=== PATIENT | female | born 1955 | race Caucasian/White ===

== ENCOUNTER 2017-04-03 21:25 | Observation (INO) | payer SELFPAY ==
[2017-04-03 22:02] LABS: Hematocrit 45 % (35-47); Hemoglobin 14.8 g/dl (12.0-16.0); Mean Corpuscular HGB Conc 33 g/dl (31-36); Mean Corpuscular Hemoglobin 31 pg (27-31); Mean Corpuscular Volume 94 fL (80-97); Mean Platelet Volume 11 um3 (7.4-10.4); Red Blood Count 4.81 10^6/ul (4.0-5.4); Red Cell Distribution Width 15 % (10.5-15); White Blood Count 7.2 10^3/ul (3.5-10.8)
--- NOTE | 2017-04-03 22:08 | RAD ---
INDICATION: Chest pain. COMPARISON: Comparison is made with a prior chest x-ray study from February 12, 2015. TECHNIQUE: A portable view of the chest was obtained. FINDINGS: Cardiac and mediastinal contours appear to be within normal limits. The lungs are clear. No pleural effusion is seen. IMPRESSION: NO EVIDENCE FOR ACUTE DISEASE.
[2017-04-03 22:17] LABS: BUN/Creatinine Ratio 17.3 (8-20); EGFR African American 100.7 (>60); EGFR Non-African American 78.3 (>60); Globulin 2.4 g/dL (2-4); Potassium 3.7 mmol/L (3.5-5.0); Total Bilirubin 0.4 mg/dL (0.2-1.0); Total Protein 6.4 g/dL (6.4-8.9)
[2017-04-04 02:14] LABS: HDL Cholesterol 45.4 mg/dL
--- NOTE | 2017-04-04 02:28 | HP ---
CC: Dr. Brooks* HISTORY AND PHYSICAL: DATE OF ADMISSION: CHIEF COMPLAINT: Chest pain. HISTORY OF PRESENT ILLNESS: The patient is a 61-year-old woman, who presents to the [facility] with a chief complaint of chest pain that started after dinner. She was lying down and she started feeling in the center of her chest all the way up to her neck. It did not radiate anywhere else. It was pressure like and 5/10 in severity. She had no nausea or vomiting, no shortness of breath, no palpitations, no sweating. She called the EMS, who gave her nitroglycerin and she said it slowly helped decrease the pain and now it is essentially gone. This has never happened before. PAST MEDICAL HISTORY: Significant for arthritis, a patent foramen ovale that was subsequently closed with surgery, bradycardia, constipation, hypothyroidism , and hypertriglyceridemia. MEDICATIONS: The only medication she is currently taking is Synthroid 50 mcg daily. ALLERGIES: She has no known drug allergies. FAMILY HISTORY: Reviewed and noncontributory. SOCIAL HISTORY: Quit tobacco in . No alcohol, occasional marijuana. She is a retired nurse. She is . Her daughter, Lilian Wallace, is her healthcare proxy. She has 3 children. REVIEW OF SYSTEMS: A 14-point review of systems was completed with the patient. All pertinent positives and negatives are in the history of present illness; otherwise, it is negative. PHYSICAL EXAMINATION GENERAL: A very pleasant woman, sitting up in bed, in no acute distress. VITAL SIGNS: Blood pressure /55, pulse ox 100%, respiratory 13 breaths per minute, heart rate beats per minute, temperature 98 degrees. HEENT: Normocephalic, atraumatic. Pupils equal, round, and reactive to light. Moist mucous membranes. NECK: Supple. No JVD, bruits, palpable thyroid, or lymphadenopathy. CHEST: Clear to auscultation and percussion bilaterally. CARDIOVASCULAR: S1, S2 appreciated. ABDOMEN: Positive bowel sounds in all 4 quadrants. Soft, nontender, nondistended. No hepatosplenomegaly. EXTREMITIES: No cyanosis, clubbing, or edema. +2 peripheral pulses bilaterally. NEURO: Alert and oriented x3. Moves all extremities. SKIN: No rashes or abnormalities. DIAGNOSTIC STUDIES/LAB DATA: Sodium 137, potassium 3.7, chloride 106, CO2 25, BUN 13, creatinine is 0.75, glucose is 91. Troponin is 0.00. White count 7.2, hemoglobin 14.8, hematocrit 45, platelets 174. Chest x-ray was interpreted by Radiology as no evidence for acute disease. EKG shows normal sinus rhythm at 61 beats per minute, normal axis, no acute ST- T wave changes. ASSESSMENT AND PLAN: 1. Chest pain. Part of her story is reasonable with the pressure-like pain that was relieved by nitro but the other part including the fact there were no associated symptoms make it seem less likely to be cardiac disease. However, we will rule her out with serial troponins. We will obtain nuclear stress test in the morning. We will check a lipid profile as she supposedly has high triglycerides that are currently untreated. 2. Hypothyroidism, stable. Continue Synthroid. 3. FEN. NPO after midnight. 4. DVT prophylaxis. Heparin subcu. 5. The patient is a full code. TIME SPENT: Over 75 minutes was spent on this H and P; more than 40 minutes of which was spent in direct [id number] contact with the patient in evaluation, physical exam, counseling, and coordination of care. [id number]/[facility] #: [id number] MTDD
[2017-04-04] MEDS ORDERED: Levothyroxine TAB* 50 MCG TAB PO SCH (06:00)
[2017-04-04] MEDS ORDERED: Heparin VIAL(*) 5000 UNITS/ML VIAL (FIVE THOUSAND) SUBCUT SCH (06:00)
--- NOTE | 2017-04-04 10:29 | RAD ---
Edited for charges. INDICATION: Chest pain COMPARISON: None TECHNIQUE: SPECT imaging was performed. Rest images were acquired following the intravenous injection of 10 millicuries of technetium 99m tetrofosmin at 0625 hours. At 0842 hours stress images were acquired following the intravenous administration of 25 millicuries of technetium 99m tetrofosmin. AP heart rate of 150 bpm was obtained which is 95% of the predicted value of 158 bpm. FINDINGS: There are no defects of the stress-induced or fixed nature. The cardiac chamber size is normal. There are no wall motion abnormalities. The ejection fraction is calculated at 73% percent during stress. IMPRESSION: No scintigraphic evidence of ischemia or infarction. ASSESSMENT: Low risk MTDD
[2017-04-04] MEDS ORDERED: Regadenoson* 0.4 MG/5 ML SYRINGE ONE (12:54)
[2017-04-04 13:26] VITALS: BP 117/66
--- NOTE | 2017-04-04 18:19 | DS ---
CC: Dr. Brooks.* DISCHARGE SUMMARY: DATE OF ADMISSION: 04/04/17 DATE OF DISCHARGE: 04/04/17 PRIMARY CARE PROVIDER: Dr. Brooks. DISCHARGE DIAGNOSIS: Chest pain that resolved, with low probability cardiac stress test documented on 04/04/17. SECONDARY DIAGNOSIS: 1. History of arthritis. 2. History of patent foramen ovale closure. 3. Bradycardia. 4. Constipation. 5. Hypothyroidism. 6. Hypertriglyceridemia. MEDICATION ON DISCHARGE: Synthroid 50 mcg daily. LABORATORY DATA AND STUDIES PERFORMED DURING HOSPITAL STAY: Included troponins that were zero throughout her hospital stay. Patient's triglycerides were 136, cholesterol of 176, LDL of 101 and HDL of 45. Patient's nuclear medicine cardiac stress test documented on 04/04/17, was low risk. There were no defects of stress induced or fixed nature. The ejection fraction was noted at 73% during stress. Patient is going to be discharged home, with recommendation to followup with her primary care doctor, Dr. Brooks, in 4 to 7 days. PHYSICAL EXAM AT DISCHARGE: Blood pressure of 101/54, heart rate of 58 and regular, respiratory rate 20, oxygen saturation 97% on room air, temperature of 99.0. General: Patient is a very pleasant 61-year-old female, who is in no acute distress. Alert, awake, oriented x3. HEENT: Head atraumatic, normocephalic. Pupils are equal, reactive to light and accommodation. Oropharynx is clear. Mucosa moist. Neck: Supple. No JVD. No bruits bilaterally. Cardiovascular: Regular rate and rhythm. No murmur. Respiratory: Clear to auscultation bilaterally. Abdomen: Soft and nontender. Bowel sounds present in all 4 quadrants. Please note that this is a short summary of the patient's hospital stay. Please refer to further medical records for details. [id number]/[facility] #: [id number] MTDD
--- NOTE | 2017-04-05 23:23 | ED ---
John Tellez Rebecca, scribed for Golden Bradford MD on 04/03/17 at 2300 . HPI Chest Pain - HPI Summary HPI Summary: Pt is a 61 y/o female BIBA to the ED c/o of sudden onset CP. CP began after dinner while laying in bed, at roughly 21:00. Pain is midsternal with radiation up to the jaw. Pain is currently described as mild, and went from a 5/10 to 3/ 10 after she received NTG administered by EMS. Pain is now 1/10 and characterized as dull. Pt also c/o of tingling bilaterally in the LE, described as her legs "feeling fake". Denies SOB, back pain, edema. PMHx of HLD and depression. FHx CAD. Pt was a heavy drinker until she quit 6 months ago former smoker. Last stress test a few years ago. - History of Current Complaint Chief Complaint: EDChestPainROMI Time Seen by Provider: 04/03/17 21:41 Hx Obtained From: Patient Onset/Duration: Started Hours Ago, Still Present Time of Onset: 21:00 Timing: Constant Initial Severity: Moderate Current Severity: Mild Pain Intensity: 1 Pain Scale Used: 0-10 Numeric Chest Pain Location: Mid Sternal Chest Pain Radiates: Yes Chest Pain Radiates To:: Jaw Character: Dull/Aching Aggravating Factor(s): Nothing Alleviating Factor(s): NTG 123 - administered by EMS [employer] Associated Signs and Symptoms: Positive: Tingling - bilateral LE. Negative: Shortness of Breath, Back Pain, Edema - Additional Pertinent History Primary Care Physician: [id number] - Allergy/Home Medications Allergies/Adverse Reactions: Allergies Allergy/AdvReac Type Severity Reaction Status Date / Time No Known Allergies Allergy Verified 04/03/17 22:08 PMH/Surg Hx/FS Hx/Imm Hx Endocrine/Hematology History: Reports: Hx Thyroid Disease Cardiovascular History: Reports: Hx Congenital Heart Disease, Other Cardiovascular Problems/Disorders - hx bradycardia; hx of patent foramen ovale heart valve repair Respiratory History: Reports: Other Respiratory Problems/Disorders GI History: Reports: Other GI Disorders - Constipation Musculoskeletal History: Reports: Hx Arthritis Denies: Hx Osteoporosis Psychiatric History: Reports: Hx Post Traumatic Stress Disorder, Hx Inpatient Treatment, Hx Community Mental Health Tx, Hx Bipolar Disorder, Other Psychiatric Issues/Disorders - dissociative d/o Denies: Hx Eating Disorder, Hx of Violent Episodes Against Others - Surgical History Surgery Procedure, Year, and Place: HYSTERECTOMY; HEART DEVICE; TONSILLECTOMY - Immunization History Date of Tetanus Vaccine: unknown Date of Influenza Vaccine: unknown Infectious Disease History: Denies: Traveled Outside the [place] in Last 30 Days - Family History Known Family History: Positive: Cardiac Disease - used to drink heavily but quit - Social History Alcohol Use: used to drink heavily but quit 6 months ago. Still drinks occasionally Substance Use Type: Reports: None Hx Tobacco Use: Yes Smoking Status (MU): Former Smoker Review of Systems Negative: Fever, Chills Negative: Erythema Negative: Sore Throat Positive: Chest Pain Negative: Shortness Of Breath, Cough Negative: Abdominal Pain, Vomiting, Nausea Negative: dysuria, hematuria Negative: Arthralgia - Denies back pain, Myalgia, Edema Negative: Rash Neurological: Other - Bilateral LE tingling; negative dizziness All Other Systems Reviewed And Are Negative: Yes Physical Exam - Summary Physical Exam Summary: Constitutional: Well-developed, Well-nourished, Alert. (-) Distressed Skin: Warm, Dry HENT: Normocephalic; Atraumatic Eyes: Conjunctiva normal Neck: Musculoskeletal ROM normal neck. (-) JVD, (-) Stridor, (-) Tracheal deviation Cardio: Rhythm regular, rate normal, Heart sounds normal; Intact distal pulses; The pedal pulses are 2+ and symmetric. Radial pulses are 2+ and symmetric. (-) Murmur Pulmonary/Chest wall: Effort normal. (-) Respiratory distress, (-) Wheezes, (-) Rales Abd: Soft, (-) Tenderness, (-) Distension, (-) Guarding, (-) Rebound Musculoskeletal: (-) Edema Lymph: (-) Cervical adenopathy Neuro: Alert, Oriented x3 Psych: Mood and affect Normal Triage Information Reviewed: Yes Vital Signs Reviewed: Yes - [place] Coma Scale Coma Scale Total: 15 Diagnostics - Laboratory Result Diagrams: 04/03/17 21:50 04/03/17 21:50 Lab Statement: Any lab studies that have been ordered have been reviewed, and results considered in the medical decision making process. - CT Brain CT CT Interpretation: No Acute Changes - NO EVIDENCE FOR ACTIVE DISEASE. CT Interpretation Completed By: Radiologist - EKG 2142 Cardiac Rate: NL - 63 bpm EKG Rhythm: Sinus Rhythm ST Segment: Normal EKG Interpretation: Artifacts in the lateral leads Chest Pain Course/Dx - Course Assessment/Plan: Pt is a 61 y/o female BIBA to the ED c/o of sudden onset CP since 2099 today, reolved by NTG administered [employer] by EMS. Pt also c/o of tingling bilaterally in the LE, described as her legs "feeling fake". Denies SOB , back pain, edema. FHx CAD. Pt was a heavy drinker until she quit 6 months ago former smoker. Last stress test a few years ago. Discussed care of pt with Dr. Zelaya who accept pt for admission. Pt will be admitted with Dx of unspecified chest pain. - Diagnoses Provider Diagnoses: Chest pain, unspecified - Provider Notifications Discussed Care Of Patient With: Ray Zelaya Time Discussed With Above Provider: 23:03 Instructed by Provider To: Admit As Inpatient Discharge - Discharge Plan Condition: Good Disposition: ADMITTED TO [facility] Referrals: Filippo Brooks MD [Primary Care Provider] - The documentation as recorded by the John nguyen Rebecca accurately reflects the service I personally performed and the decisions made by , Golden Bradford MD.
== END 2017-04-04 14:29 | disposition home or self-care (01) ==
LOC: ED 21:25 → MEDTELE 04-04 00:48
PROVIDERS: ADMIT Internal Medicine; ATTEND Internal Medicine
DX: R07.9 Chest pain, unspecified (principal); R00.1 Bradycardia, unspecified; E03.9 Hypothyroidism, unspecified; K59.00 Constipation, unspecified; E78.1 Pure hyperglyceridemia; Z79.899 Other long term (current) drug therapy; Z87.891 Personal history of nicotine dependence
CPT/HCPCS: 36415; 71010; 78452; 80053; 80061; 83605; 84484; 85025; 93005; 93017; 96372; 99285; A9270-GY; A9502; G0378; J1644; J2785